=== PATIENT | female | born 1985 | race Caucasian/White ===

== ENCOUNTER 2017-01-21 10:53 | Emergency (ER) | payer SELFPAY ==
[~2017-01-21] VITALS: Ht 154.9 cm; Wt 86.6 kg
[~2017-01-21 10:53] MED LIST: OXYC-360 PO; PREN0.01 PO
[2017-01-21 11:00] VITALS: BP 147/87; PULSE 83; RESP 16; TEMP 98; O2SAT 99
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
[2017-01-21] MEDS ORDERED: CYCL1TAB29 PO (11:21)
[2017-01-21] MEDS ORDERED: MAPA500T13 PO (11:21)
[2017-01-21] MEDS ORDERED: IBUP800T23 PO (11:21)
[2017-01-21] MEDS ORDERED: KETOROLAC TROMETHAMINE 60 MG/2 ML (IM) VIAL IM ONE (11:30)
== END 2017-01-21 11:36 | disposition home or self-care (01) ==
LOC: PHEFT 10:53
DX: M26.602 Left temporomandibular joint disorder, unspecified (principal); M43.6 Torticollis
CPT/HCPCS: 96372; 99284; J1885